=== PATIENT | female | born 1940 | race African-American/Black ===

== ENCOUNTER 2016-07-31 18:36 | Inpatient (IN) | payer MEDICARE, BC ==
[~2016-07-31] VITALS: Ht 165.1 cm; Wt 95.3 kg
[~2016-07-31 18:36] MED LIST: ASPI-1035 PO; ATEN-42 PO; ATOR20TA65 PO; AZITHROMYCIN 500 MG in DEXT 5% WATER 250 ML IV SCH; CHOL100046 PO; CIPR-168 PO; GLIP5TAB12 PO; HYDR-523 PO; LISI10TA5 PO; MEMA10TA11 PO; OXYB15TA9 PO; RIVA20TA PO
[2016-07-31] MEDS ORDERED: SODIUM CHLORIDE 0.9% 1,000 ML IV ONE ×2 (19:05→21:26)
[2016-07-31] MEDS ORDERED: AZITHROMYCIN 500 MG in DEXT 5% WATER 250 ML IV SCH ×2 (19:15→21:00)
[2016-07-31] MEDS ORDERED: CEFTRIAXONE 1 G PREMIX 50 ML IV ONE (19:15)
[2016-07-31 19:35] LABS: HEMATOCRIT. 37.6 % (36.0-48.0); HEMOGLOBIN. 11.8 g/dL (12.0-16.0); MEAN CORPUSCULAR HEMOGLOBIN 24.4 pg (28.0-32.0); MEAN CORPUSCULAR VOLUME 77.6 fL (81.0-99.0); MEAN PLATELET VOLUME 7.5 fl (7.4-10.4); PLATELET 308 x1000/uL (130-400); RED BLOOD CELL COUNT 4.84 mill/uL (4.2-5.4); RED CELL DISTRIBUTION WIDTH 19.4 % (11.6-14.6)
[2016-07-31 19:38] LABS: CHLORIDE 103 mEq/L (98-107); INR 1.3; PROTHROMBIN TIME 13.4 sec
[2016-07-31 19:45] LABS: CARBON DIOXIDE 24 mEq/L (21-32)
[2016-07-31 20:02] LABS: PLATELET ESTIMATE NORMAL
[2016-07-31 20:47] LABS: CLARITY URINE CLEAR (CLEAR); COLOR URINE YELLOW (YELLOW); GLUCOSE URINE 3+ (NEGATIVE); KETONES URINE NEGATIVE (NEGATIVE); LEUKOCYTE ESTERASE URINE NEGATIVE (NEGATIVE); NITRITE URINE NEGATIVE (NEGATIVE); OCCULT BLOOD URINE 3+ (NEGATIVE); PH URINE 7.5 (4.5-8.0); PROTEIN URINE NEGATIVE (NEGATIVE); SPECIFIC GRAVITY URINE 1.017 (1.005-1.030)
[2016-07-31] MEDS ORDERED: GUAIFENESIN 200MG/10ML SUGAR FREE UDC PO PRN (21:00)
[2016-07-31] MEDS ORDERED: DOCUSATE SODIUM 100MG CAPSULE PO PRN (21:00)
[2016-07-31] MEDS ORDERED: ACETAMINOPHEN 325MG TABLET PO PRN (21:00)
[2016-07-31] MEDS ORDERED: IPRATROPIUM/ALBUTEROL 0.5-3(2.5)MG/3ML NEB INH PRN (21:00)
[2016-07-31] MEDS ORDERED: DIPHENHYDRAMINE 50MG/ML VIAL IV PRN (21:00)
[2016-07-31] MEDS ORDERED: MAGNESIUM/ALUMINUM HYDROXIDE/SIMETHICONE 30ML UDC PO PRN (21:00)
[2016-07-31] MEDS ORDERED: ONDANSETRON HCL 4MG/2ML VIAL IV PRN (21:00)
[2016-07-31] MEDS ORDERED: NITROGLYCERIN 0.4MG TABLET SL SL PRN ×2 (21:00)
[2016-07-31] MEDS ORDERED: ACETAMINOPHEN 325MG TABLET PO ONE (21:30)
[2016-07-31] MEDS ORDERED: TRAMADOL 50MG TABLET PO PRN (22:03)
[2016-07-31] MEDS ORDERED: NA PHOS,M-B/NA PHOS,DI-BA ENEMA 118ML PR PRN (22:04)
[2016-07-31] MEDS ORDERED: ZOLPIDEM TARTRATE 5MG TABLET PO PRN (22:04)
[2016-07-31] MEDS ORDERED: DEXTROSE 50% WATER 50ML SYRINGE IV PRN (22:19)
[2016-07-31] MEDS: INSULIN LISPRO 100 UNITS/ML SUBCUT SCH (22:31)
[2016-07-31 22:54] LABS: CREATINE KINASE 72 IU/L (26-192); CREATINE KINASE MB FRACTION 0.9 ng/mL (0.5-3.6); TROPONIN I < 0.02 ng/mL (0.00-0.04)
[2016-08-01] VITALS (8 sets, daily range): BP systolic 96–128; BP diastolic 51–78
[2016-08-01] MEDS: METOPROLOL TARTRATE 25MG TABLET PO SCH ×3 (00:32→21:00)
[2016-08-01] MEDS: LISINOPRIL 20MG TABLET PO SCH ×3 (00:32→21:00)
[2016-08-01] MEDS: GUAIFENESIN/DM 600MG/30MG ER TAB 12HR PO SCH ×3 (00:32→21:52)
[2016-08-01] MEDS: ATORVASTATIN CALCIUM 10MG TABLET PO SCH ×2 (00:32→21:52)
[2016-08-01] MEDS ORDERED: KEPP500 PO (01:58)
[2016-08-01] MEDS ORDERED: LOSA25TA12 PO (01:58)
[2016-08-01] MEDS: BLOOD SUGAR DIAGNOSTIC STRIP TEST SCH ×4 (06:21→21:52)
[2016-08-01 06:37] LABS: CREATINE KINASE MB FRACTION 1.8 ng/mL (0.5-3.6); TROPONIN I 0.04 ng/mL (0.00-0.04)
[2016-08-01] MEDS: INSULIN LISPRO 100 UNITS/ML SUBCUT SCH ×4 (08:42→21:52)
[2016-08-01] MEDS: ENOXAPARIN 40MG/0.4ML SYR SUBCUT SCH (08:43)
[2016-08-01] MEDS: PANTOPRAZOLE SODIUM 40 MG/VIAL IV SCH (08:43)
[2016-08-01] MEDS: ASPIRIN 325MG EC TABLET PO SCH (08:43)
[2016-08-01] MEDS: IPRATROPIUM/ALBUTEROL 0.5-3(2.5)MG/3ML NEB HHN SCH (20:18)
[2016-08-01] MEDS ORDERED: CEFTRIAXONE 1 G PREMIX 50 ML IV SCH (21:00)
[2016-08-02] VITALS: BP 104/61
[2016-08-02] MEDS: IPRATROPIUM/ALBUTEROL 0.5-3(2.5)MG/3ML NEB HHN SCH ×4 (02:30→21:47)
[2016-08-02 04:00] VITALS: BP 111/59
[2016-08-02] MEDS: BLOOD SUGAR DIAGNOSTIC STRIP TEST SCH ×4 (07:20→21:14)
[2016-08-02] MEDS: INSULIN LISPRO 100 UNITS/ML SUBCUT SCH ×4 (07:50→21:23)
[2016-08-02 08:00] VITALS: BP 109/60
[2016-08-02] MEDS: METOPROLOL TARTRATE 25MG TABLET PO SCH ×2 (08:55→21:00)
[2016-08-02] MEDS: LISINOPRIL 20MG TABLET PO SCH ×2 (08:55→21:00)
[2016-08-02] MEDS: GUAIFENESIN/DM 600MG/30MG ER TAB 12HR PO SCH ×2 (08:58→21:22)
[2016-08-02] MEDS: ENOXAPARIN 40MG/0.4ML SYR SUBCUT SCH (08:58)
[2016-08-02] MEDS: ASPIRIN 325MG EC TABLET PO SCH (08:58)
[2016-08-02] MEDS: PANTOPRAZOLE SODIUM 40 MG/VIAL IV SCH (08:58)
[2016-08-02 12:00] VITALS: BP 105/65
[2016-08-02 16:01] VITALS: BP 99/58
[2016-08-02 20:00] VITALS: BP 99/56
[2016-08-02] MEDS: ATORVASTATIN CALCIUM 10MG TABLET PO SCH (21:22)
[2016-08-02] MEDS: CEFTRIAXONE 1 G PREMIX 50 ML IV SCH (22:16)
[2016-08-03] VITALS: BP 108/65
[2016-08-03] MEDS: IPRATROPIUM/ALBUTEROL 0.5-3(2.5)MG/3ML NEB HHN SCH ×4 (01:49→22:02)
[2016-08-03 04:00] VITALS: BP 96/63
[2016-08-03] MEDS: BLOOD SUGAR DIAGNOSTIC STRIP TEST SCH ×4 (06:19→21:02)
[2016-08-03] MEDS: INSULIN LISPRO 100 UNITS/ML SUBCUT SCH ×4 (07:50→21:00)
[2016-08-03 08:00] VITALS: BP 107/69
[2016-08-03] MEDS: LISINOPRIL 20MG TABLET PO SCH ×2 (08:38→21:00)
[2016-08-03] MEDS: ENOXAPARIN 40MG/0.4ML SYR SUBCUT SCH (08:38)
[2016-08-03] MEDS: PANTOPRAZOLE SODIUM 40 MG/VIAL IV SCH (08:38)
[2016-08-03] MEDS: METOPROLOL TARTRATE 25MG TABLET PO SCH ×2 (08:38→21:01)
[2016-08-03] MEDS: GUAIFENESIN/DM 600MG/30MG ER TAB 12HR PO SCH ×2 (08:38→21:00)
[2016-08-03] MEDS: ASPIRIN 325MG EC TABLET PO SCH (08:38)
[2016-08-03 12:00] VITALS: BP 104/68
[2016-08-03 13:33] LABS: BASOPHILS % 0.1 % (0.0-2.0); EOSINOPHILS % 1.8 % (0.0-5.0); HEMATOCRIT. 29.8 % (36.0-48.0); HEMOGLOBIN. 9.6 g/dL (12.0-16.0); LYMPHOCYTES % 9.5 % (20.0-50.0); MEAN CORPUSCULAR HEMOGLOBIN 24.7 pg (28.0-32.0); MEAN CORPUSCULAR VOLUME 76.8 fL (81.0-99.0); MEAN PLATELET VOLUME 7.5 fl (7.4-10.4); MONOCYTES % 6.4 % (2.0-8.0); NEUTROPHILS % 82.2 % (40.0-76.0); PLATELET 240 x1000/uL (130-400); RED BLOOD CELL COUNT 3.88 mill/uL (4.2-5.4); RED CELL DISTRIBUTION WIDTH 19.4 % (11.6-14.6)
[2016-08-03 13:48] LABS: CARBON DIOXIDE 28 mEq/L (21-32); CHLORIDE 105 mEq/L (98-107)
[2016-08-03] MEDS: SODIUM CHLORIDE 0.9% 1,000 ML IV SCH (14:27)
[2016-08-03 16:01] VITALS: BP 99/65
[2016-08-03 20:00] VITALS: BP 120/90
[2016-08-03] MEDS: ATORVASTATIN CALCIUM 10MG TABLET PO SCH (21:01)
[2016-08-03] MEDS: CEFTRIAXONE 1 G PREMIX 50 ML IV SCH (21:01)
[2016-08-04] VITALS: BP 120/77
[2016-08-04] MEDS: SODIUM CHLORIDE 0.9% 1,000 ML IV SCH ×2 (02:24→17:26)
[2016-08-04] MEDS: IPRATROPIUM/ALBUTEROL 0.5-3(2.5)MG/3ML NEB HHN SCH ×4 (02:50→20:08)
[2016-08-04 04:00] VITALS: BP 125/66
[2016-08-04] MEDS: BLOOD SUGAR DIAGNOSTIC STRIP TEST SCH ×4 (06:01→20:40)
[2016-08-04] MEDS: INSULIN LISPRO 100 UNITS/ML SUBCUT SCH ×4 (07:50→20:40)
[2016-08-04 08:00] VITALS: BP 157/92
[2016-08-04] MEDS: LISINOPRIL 20MG TABLET PO SCH ×2 (09:15→20:40)
[2016-08-04] MEDS: PANTOPRAZOLE SODIUM 40 MG/VIAL IV SCH (09:15)
[2016-08-04] MEDS: ASPIRIN 325MG EC TABLET PO SCH (09:15)
[2016-08-04] MEDS: METOPROLOL TARTRATE 25MG TABLET PO SCH ×2 (09:15→20:40)
[2016-08-04] MEDS: GUAIFENESIN/DM 600MG/30MG ER TAB 12HR PO SCH ×2 (09:15→20:40)
[2016-08-04] MEDS: ENOXAPARIN 40MG/0.4ML SYR SUBCUT SCH (09:16)
[2016-08-04 12:00] VITALS: BP 164/91
[2016-08-04] MEDS: CLONIDINE 0.1MG TABLET PO PRN (12:45)
[2016-08-04 15:49] VITALS: BP 127/74
[2016-08-04 20:00] VITALS: BP 137/80
[2016-08-04] MEDS: CEFTRIAXONE 1 G PREMIX 50 ML IV SCH (20:39)
[2016-08-04] MEDS: ATORVASTATIN CALCIUM 10MG TABLET PO SCH (20:39)
[2016-08-05 00:22] VITALS: BP 133/82
[2016-08-05] MEDS: IPRATROPIUM/ALBUTEROL 0.5-3(2.5)MG/3ML NEB HHN SCH ×3 (02:39→13:07)
[2016-08-05 04:00] VITALS: BP 126/76
[2016-08-05] MEDS: SODIUM CHLORIDE 0.9% 1,000 ML IV SCH (05:30)
[2016-08-05] MEDS: BLOOD SUGAR DIAGNOSTIC STRIP TEST SCH ×2 (06:35→12:20)
[2016-08-05] MEDS: INSULIN LISPRO 100 UNITS/ML SUBCUT SCH ×2 (07:50→13:28)
[2016-08-05 08:00] VITALS: BP 135/91
[2016-08-05] MEDS: ENOXAPARIN 40MG/0.4ML SYR SUBCUT SCH (08:27)
[2016-08-05] MEDS: GUAIFENESIN/DM 600MG/30MG ER TAB 12HR PO SCH (08:27)
[2016-08-05] MEDS: LISINOPRIL 20MG TABLET PO SCH (08:27)
[2016-08-05] MEDS: PANTOPRAZOLE SODIUM 40 MG/VIAL IV SCH (08:27)
[2016-08-05] MEDS: METOPROLOL TARTRATE 25MG TABLET PO SCH (08:28)
[2016-08-05] MEDS: ASPIRIN 325MG EC TABLET PO SCH (08:28)
[2016-08-05 12:00] VITALS: BP 132/92
[2016-08-05] MEDS: CLONIDINE 0.1MG TABLET PO PRN (13:29)
[2016-08-05 14:37] VITALS: BP 130/85
[2016-08-05 16:00] VITALS: BP 118/64
== END 2016-08-05 19:10 | disposition home or self-care (01) | DRG 871 ==
LOC: ER 19:15 → 6EST 20:09 → 6WST 23:30
PROVIDERS: ADMIT Internal Medicine; ATTEND Internal Medicine
DX: A41.9 Sepsis, unspecified organism (principal); G93.40 Encephalopathy, unspecified; J69.0 Pneumonitis due to inhalation of food and vomit; E44.0 Moderate protein-calorie malnutrition; G40.909 Epilepsy, unspecified, not intractable, without status epilepticus; F03.90 Unspecified dementia, unspecified severity, without behavioral disturbance, psychotic disturbance, mood disturbance, and anxiety; E11.9 Type 2 diabetes mellitus without complications; E86.0 Dehydration; K59.00 Constipation, unspecified; I10 Essential (primary) hypertension; Z79.4 Long term (current) use of insulin; Z88.0 Allergy status to penicillin; Z79.82 Long term (current) use of aspirin; Z79.899 Other long term (current) drug therapy; Z68.34 Body mass index [BMI] 34.0-34.9, adult
CPT/HCPCS: 36415; 71010; 80048; 80053; 80061; 81001; 82550; 82553; 82962; 83036; 83605; 84484; 85025; 85610; 87040; 87086; 93970; 94640; 96365; 96367; 96372; 99285; A6261; C9113; J0456; J0696; J1200; J1650; J1815; J7030; J7050; J7060; J7620